=== PATIENT | female | born 1940 | race African-American/Black ===

== ENCOUNTER → 2017-07-11 | Outpatient (CLI) | payer MEDICARE ==
[~2017-07-11] MED LIST: ACYC-114 PO; ALBU10PO PO; ALBU2.5V NEB; CHOL20002 PO; ESOM40CA PO; FLUT16SP NS; HYDR-3237 PO; HYDR12.58 PO; IBUP-1222 PO; LACT1CAP37 PO; LOSA50TA6 PO; MONT10TA9 PO; OMEG1CAP2 PO; PRAV80TA2 PO; ZOLP10TA5 PO
== END | disposition home or self-care (01) ==
LOC: CFH 10:54
PROVIDERS: ATTEND Nurse Practitioner Family
DX: Z12.31 Encounter for screening mammogram for malignant neoplasm of breast (principal); Z80.3 Family history of malignant neoplasm of breast
CPT/HCPCS: 77067

== ENCOUNTER → 2017-08-30 | Outpatient (CLI) | payer MEDICARE | END | disposition home or self-care (01) | LOC: RAD 11:44 | PROVIDERS: ATTEND Internal Medicine Critical Care Medicine | DX: J43.9 Emphysema, unspecified (principal); J90 Pleural effusion, not elsewhere classified; D86.0 Sarcoidosis of lung; R59.9 Enlarged lymph nodes, unspecified | CPT/HCPCS: 71250 ==

== ENCOUNTER → 2017-09-14 | Outpatient (CLI) | payer MEDICARE | END | disposition home or self-care (01) | LOC: CFH 12:26 | PROVIDERS: ATTEND Registered Nurse | DX: I34.0 Nonrheumatic mitral (valve) insufficiency (principal); I10 Essential (primary) hypertension; I31.3 Pericardial effusion (noninflammatory); D86.0 Sarcoidosis of lung; K21.9 Gastro-esophageal reflux disease without esophagitis; Z87.891 Personal history of nicotine dependence | CPT/HCPCS: 93306 ==

== ENCOUNTER → 2017-09-20 | Outpatient (CLI) | payer MEDICARE ==
[~2017-09-20] MED LIST changes: +SYMBICORT INH
== END | disposition home or self-care (01) ==
LOC: PETCFH 08:33
PROVIDERS: ATTEND Registered Nurse
DX: J90 Pleural effusion, not elsewhere classified (principal); N13.30 Unspecified hydronephrosis; I31.3 Pericardial effusion (noninflammatory); I51.7 Cardiomegaly; R59.0 Localized enlarged lymph nodes; R91.1 Solitary pulmonary nodule
CPT/HCPCS: 78815; A9552

== ENCOUNTER → 2017-09-28 | Outpatient (CLI) | payer MEDICARE ==
[2017-09-28 10:31] LABS: ALBUMIN 3.6 g/dL (3.4-5.0); ANION GAP 5 mmol/L (5-15); CALCIUM 9.1 mg/dL (8.5-10.1); CHLORIDE 108 mmol/L (98-107)
[2017-09-28 10:37] LABS: ALANINE AMINOTRANSFERASE 25 U/L (12-78); ALKALINE PHOSPHATASE 70 U/L (45-117); BILIRUBIN,TOTAL 0.4 mg/dL (0.2-1.0); TOTAL PROTEIN 7.4 g/dL (6.4-8.2)
== END | disposition home or self-care (01) ==
LOC: STAR 09:17
PROVIDERS: ATTEND Internal Medicine
DX: Z01.818 Encounter for other preprocedural examination (principal); K86.9 Disease of pancreas, unspecified; I21.09 ST elevation (STEMI) myocardial infarction involving other coronary artery of anterior wall
CPT/HCPCS: 36415; 80053; 93005

== ENCOUNTER 2017-10-02 09:52 | Day surgery (SDC) | payer MEDICARE ==
[~2017-10-02] VITALS: Ht 157.5 cm; Wt 71.9 kg
[~2017-10-02 09:52] MED LIST changes: -CHOL20002 PO; +CHOL200085 PO; -LOSA50TA6 PO; +LOSA50TA7 PO
[2017-10-02] MEDS ORDERED: LACTATED RINGERS 1,000 ML IV SCH (10:22)
[2017-10-02 10:23] VITALS: BP 122/79
[2017-10-02] MEDS ORDERED: LIDOCAINE-MPF 1%, 5ML ONE (10:26)
[2017-10-02] MEDS ORDERED: LIDOCAINE-MPF 1%, 2ML INFIL ONE (10:30)
[2017-10-02] MEDS ORDERED: FENTANYL PF 100 MCG/2ML ONE (11:47)
[2017-10-02] MEDS ORDERED: APREPITANT 40 MG CAPSULE PO ONE (12:00)
[2017-10-02] MEDS ORDERED: SUCCINYLCHOLINE 20 MG/ML, 10ML ONE (12:28)
[2017-10-02] MEDS ORDERED: MORPHINE SULFATE 4 MG/ML, 1ML IVPush PRN (12:30)
[2017-10-02] MEDS ORDERED: LABETALOL 5MG/ML, 20ML IV PRN (12:30)
[2017-10-02] MEDS ORDERED: FENTANYL PF 100 MCG/2ML IV PRN (12:30)
[2017-10-02] MEDS ORDERED: PROMETHAZINE 25 MG SUPP PR PRN (12:30)
[2017-10-02] MEDS ORDERED: EPHEDRINE 50 MG/ML, 1ML IVPush PRN (12:30)
[2017-10-02] MEDS ORDERED: PROMETHAZINE 25 MG/ML, 1ML IV PRN (12:30)
[2017-10-02] MEDS ORDERED: ONDANSETRON ODT 8 MG PO PRN (12:30)
[2017-10-02] MEDS ORDERED: PROMETHAZINE 12.5 MG SUPP PR PRN (12:30)
[2017-10-02] MEDS ORDERED: MIDAZOLAM 1 MG/ML, 2ML IV PRN (12:30)
[2017-10-02] MEDS ORDERED: OXYcodone 5 MG/5 ML ORAL.SOL UDC PO PRN (12:30)
[2017-10-02] MEDS ORDERED: ONDANSETRON 2MG/ML, 2ML ONE (12:37)
[2017-10-02] MEDS ORDERED: ROCURONIUM 10MG/ML,5ML ONE (12:37)
[2017-10-02] MEDS ORDERED: DEXAMETHASONE 4 MG/ML, 1ML ONE (12:37)
[2017-10-02] MEDS ORDERED: PROPOFOL 10 MG/ML, 20ML ONE (12:38)
[2017-10-02] MEDS ORDERED: ALBUTEROL SULFATE 2.5 MG/3 ML ONE (13:28)
[2017-10-02] MEDS ORDERED: ALBUTEROL SULFATE 2.5 MG/3 ML NPPB PRN (13:30)
== END 2017-10-02 15:40 | disposition home or self-care (01) ==
LOC: OUT 09:52
PROVIDERS: ATTEND Internal Medicine
DX: K86.89 Other specified diseases of pancreas (principal); D86.9 Sarcoidosis, unspecified; R59.1 Generalized enlarged lymph nodes; K25.9 Gastric ulcer, unspecified as acute or chronic, without hemorrhage or perforation; I25.10 Atherosclerotic heart disease of native coronary artery without angina pectoris; K21.9 Gastro-esophageal reflux disease without esophagitis; I35.0 Nonrheumatic aortic (valve) stenosis; E78.00 Pure hypercholesterolemia, unspecified; Z90.49 Acquired absence of other specified parts of digestive tract; Z87.19 Personal history of other diseases of the digestive system; Z98.890 Other specified postprocedural states; Z79.899 Other long term (current) drug therapy; Z88.8 Allergy status to other drugs, medicaments and biological substances
CPT/HCPCS: 43238; 88305; J0330; J1100; J2405; J2704; J3010; J3490; J7120

== ENCOUNTER → 2017-11-10 | Outpatient (CLI) | payer MEDICARE ==
[~2017-11-10] MED LIST changes: +REGADENOSON 0.4 MG/5 ML SYRINGE ONE
== END | disposition home or self-care (01) ==
LOC: CFH 10:33
PROVIDERS: ATTEND Internal Medicine Cardiovascular Disease
DX: I51.7 Cardiomegaly (principal); E78.5 Hyperlipidemia, unspecified
CPT/HCPCS: 78452; 93017; 93306; A9502; J2785

== ENCOUNTER → 2017-11-20 | Outpatient (CLI) | payer MEDICARE ==
[~2017-11-20] MED LIST changes: -REGADENOSON 0.4 MG/5 ML SYRINGE ONE
== END | disposition home or self-care (01) ==
LOC: CFH 13:37
PROVIDERS: ATTEND Registered Nurse
DX: J90 Pleural effusion, not elsewhere classified (principal); N28.1 Cyst of kidney, acquired
CPT/HCPCS: 74176

== ENCOUNTER → 2018-02-21 | Outpatient (CLI) | payer MEDICARE ==
[~2018-02-21] MED LIST changes: -HYDR12.58 PO; +HYDROCHLOROTH12.5 MG PO; +OMNIPAQUE 350 MG/ML, 100ML BOTTLE ONE
== END | disposition home or self-care (01) ==
LOC: CFH 12:35
PROVIDERS: ATTEND Internal Medicine
DX: N28.1 Cyst of kidney, acquired (principal); N28.89 Other specified disorders of kidney and ureter; R59.1 Generalized enlarged lymph nodes
CPT/HCPCS: 74170; Q9967

== ENCOUNTER → 2018-02-27 | Outpatient (CLI) | payer MEDICARE ==
[~2018-02-27] MED LIST changes: -OMNIPAQUE 350 MG/ML, 100ML BOTTLE ONE
== END | disposition home or self-care (01) ==
LOC: CFH 10:21
PROVIDERS: ATTEND Internal Medicine Cardiovascular Disease
DX: I08.0 Rheumatic disorders of both mitral and aortic valves (principal); I31.3 Pericardial effusion (noninflammatory); R94.31 Abnormal electrocardiogram [ECG] [EKG]; I10 Essential (primary) hypertension; E78.5 Hyperlipidemia, unspecified; Z87.891 Personal history of nicotine dependence
CPT/HCPCS: 93306

== ENCOUNTER 2018-03-13 06:38 | Day surgery (SDC) | payer MEDICARE ==
[~2018-03-13] VITALS: Ht 157.5 cm; Wt 75.5 kg
[~2018-03-13 06:38] MED LIST changes: +CHOL20002 PO; -CHOL200085 PO; +LOSA50TA14 PO; -LOSA50TA7 PO
[2018-03-13] MEDS ORDERED: LACTATED RINGERS 1,000 ML IV SCH (07:09)
[2018-03-13 07:17] VITALS: BP 158/81
[2018-03-13] MEDS ORDERED: PROPOFOL 10 MG/ML, 20ML ONE ×3 (08:39→09:21)
[2018-03-13] MEDS ORDERED: ALBUTEROL SULFATE 2.5 MG/3 ML NPPB PRN (09:00)
== END 2018-03-13 11:15 | disposition home or self-care (01) ==
LOC: OUT 06:38
PROVIDERS: ATTEND Internal Medicine
DX: K29.70 Gastritis, unspecified, without bleeding (principal); K86.9 Disease of pancreas, unspecified; K25.9 Gastric ulcer, unspecified as acute or chronic, without hemorrhage or perforation; I10 Essential (primary) hypertension; E78.5 Hyperlipidemia, unspecified; Z88.1 Allergy status to other antibiotic agents; Z88.8 Allergy status to other drugs, medicaments and biological substances; J44.9 Chronic obstructive pulmonary disease, unspecified
CPT/HCPCS: 43242; 88305; 88307; 93005; J2704; J7120; 88342

== ENCOUNTER → 2018-06-20 | Outpatient (CLI) | payer MEDICARE | END | disposition home or self-care (01) | LOC: CFH 16:00 | PROVIDERS: ATTEND Registered Nurse | DX: D86.0 Sarcoidosis of lung (principal); J90 Pleural effusion, not elsewhere classified | CPT/HCPCS: 71250 ==

== ENCOUNTER → 2019-03-25 | Outpatient (CLI) | payer MEDICARE ==
[~2019-03-25] MED LIST changes: -FLUT16SP NS; +FLUT16SP24 NS; +MONT10TA11 PO; -MONT10TA9 PO
== END | disposition home or self-care (01) ==
LOC: CFH 11:04
PROVIDERS: ATTEND Registered Nurse
DX: I08.0 Rheumatic disorders of both mitral and aortic valves (principal); I31.3 Pericardial effusion (noninflammatory); I10 Essential (primary) hypertension; E78.5 Hyperlipidemia, unspecified; Z87.891 Personal history of nicotine dependence
CPT/HCPCS: 93306

== ENCOUNTER → 2020-05-14 | Outpatient (CLI) | payer MEDICARE ==
[~2020-05-14] MED LIST changes: -MONT10TA11 PO; +MONT10TA17 PO
== END | disposition home or self-care (01) ==
LOC: CFH 10:35
PROVIDERS: ATTEND Internal Medicine Cardiovascular Disease
DX: I08.0 Rheumatic disorders of both mitral and aortic valves (principal); I31.3 Pericardial effusion (noninflammatory)
CPT/HCPCS: 93306

== ENCOUNTER → 2020-07-22 | Outpatient (CLI) | payer MEDICARE ==
[~2020-07-22] MED LIST changes: -ACYC-114 PO; +ACYC-40 PO; -LACT1CAP37 PO; +LACT1CAP47 PO; +OMNIPAQUE 350 MG/ML, 75ML BOTTLE ONE
[2020-07-22 14:51] LABS: CREATININE 0.91 mg/dL (0.55-1.02)
== END | disposition home or self-care (01) ==
LOC: RAD 14:07
PROVIDERS: ATTEND Registered Nurse
DX: I31.3 Pericardial effusion (noninflammatory) (principal); D86.0 Sarcoidosis of lung; J98.11 Atelectasis; J43.2 Centrilobular emphysema; J90 Pleural effusion, not elsewhere classified; J98.4 Other disorders of lung; R59.0 Localized enlarged lymph nodes
CPT/HCPCS: 36415; 71275; 82565; Q9967

== ENCOUNTER → 2020-07-24 | Outpatient (CLI) | payer MEDICARE ==
[~2020-07-24] MED LIST changes: +LIDOCAINE-MPF 1%, 5ML ONE; -OMNIPAQUE 350 MG/ML, 75ML BOTTLE ONE
== END | disposition home or self-care (01) ==
LOC: RAD 13:25
PROVIDERS: ATTEND Registered Nurse
DX: J90 Pleural effusion, not elsewhere classified (principal)
CPT/HCPCS: 32555; 82150; 82945; 83615; 83986; 84157; 87070; 87075; 87102; 87116; 87205; 87206; 88112; 88305; 89051